=== PATIENT | female | born 1950 | race Caucasian/White ===

== ENCOUNTER 2018-02-24 16:00 | Emergency (ER) | payer MEDICARE, OTHER ==
[~2018-02-24] VITALS: Ht 165.1 cm; Wt 75.0 kg
[2018-02-24 18:25] VITALS: BP 185/105
== END 2018-02-24 18:26 | disposition home or self-care (01) ==
LOC: ER 16:00
DX: I10 Essential (primary) hypertension (principal); G89.29 Other chronic pain; M25.569 Pain in unspecified knee; F41.9 Anxiety disorder, unspecified
CPT/HCPCS: 93005; 99283